=== PATIENT | female | born 1995 | race Caucasian/White ===

== ENCOUNTER 2016-09-06 23:34 | Emergency (ER) | payer OTHER ==
[2016-09-06 23:41] VITALS: BP 108/60; PULSE 90; RESP 20; O2SAT 100
--- NOTE | 2016-09-07 00:43 | ED.REPORT ---
HPI-Syncope Date of Service Sep 07, 2016 ED Provider: Niko Durbin DO 21 year old female presents to the ED via EMS accompanied by her father due to head and neck injuries status post syncopal fall just prior to arrival while in the shower. She also complains of left shoulder pain, and left knee pain secondary to the event. Four days ago she started oxcarbazepine 300mg tid. Nursing Notes Stated Complaint: SYNCOPE/CHIN LACERATION Chief Complaint: Head, Face, Neck Trauma Nursing Notes Reviewed: Yes Allergies: Coded Allergies: No Known Allergies (Unverified , 09/06/16) General Time Seen by Provider: 00:43 Chief Complaint Lost consciousness Hx Obtained From: Patient Arrived By: Ambulance Onset Occurred: Just prior to arrival Location: : Head: Neck Quality: Painful Severity: Current: Moderate Severity: Maximum: Moderate Pertinent Negative: Pt denies other symptoms Similar Sx Previous: No Past Medical History Past Medical History Depression PTSD Bipolar Anxiety Smoking History Never Smoker Social History Alcohol Use: Denies alcohol use Ambulatory Status Independent Review of Systems Cardiovascular: Denies: Chest pain GI: Denies: Abdominal pain, Nausea, Vomiting Musculoskeletal: Reports: Joint pain (Left Shoulder, Left knee), Neck pain, Denies: Back pain, Extremity pain, Lumbar pain Neurologic: Reports: Headache, Syncope Complete sys rev & neg: except as marked. Physical Exam Initial Vital Signs Vital Signs (First) Date Time Temp Pulse Resp B/P Pulse Ox O2 Delivery O2 Flow Rate FiO2 09/06/16 23:41 36.9 90 20 108/60 100 Room Air Initial VS: Reviewed Abdomen / GI: Soft, Non-tender, No guarding, No rebound, No distention Skin: Warm, Dry, No cyanosis General/Constitutional: Awake, Alert, Well developed, Well nourished Appearance / Presentation: Positive: Obese Respiratory / Chest: Breath sounds NL, Breath sounds = bilat, No respiratory distress, No rales, No rhonchi, No wheezing Cardiovascular: Heart rate NL, Regular rhythm, Heart sounds NL, No murmurs, Cap refill not delayed, Peripheral circulation NL Lower Extremity / Pelvis / MS: No deformity, Neurologic intact, Vascular intact Left Knee: Positive: ROM painful, ROM reduced, Tenderness present... (Moderate) Neurologic: Oriented X3, Speech NL, No motor deficits, No sensory deficits Head / Eyes: Normocephalic 2cm chin laceration Neck: No meningismus, Full range of motion, No tracheal deviation Neck / Muscle Tenderness: Positive: Midline tenderness mid Upper Extremity / MS: Neurologic intact, Vascular intact Left Shoulder: Positive: Tenderness present... (Moderate) Interpretation & Diagnostics Lab Results Interpretation Result Diagram: 09/07/16 0208 09/07/16 0208 Test 09/07/16 02:08 White Blood Count 17.3th/mm3 (3.8-10.1) Red Blood Count 5.23mil/mm3 (3.90-5.20) Hemoglobin 15.4g/dL (12.0-15.6) Hematocrit 44.1% (35.0-46.0) Mean Corpuscular Volume 84.3fL (81-100) Mean Corpuscular Hemoglobin 29.4pg (27.0-35.0) Mean Corpuscular Hemoglobin Concent 34.9% (32.0-37.0) Red Cell Distribution Width 12.6% (12.3-15.4) Platelet Count 269bil/L (150-400) Neutrophils (%) (Auto) 75.1% (40-74) Lymphocytes (%) (Auto) 18.3% (14-46) Monocytes (%) (Auto) 5.6% (4-12) Eosinophils (%) (Auto) 0.4% (0-5) Basophils (%) (Auto) 0.3% (0-3) D-Dimer < 0.5mg/L (<0.50) Sodium Level 137mEq/L (134-144) Potassium Level 5.0mEq/L (3.5-5.2) Chloride Level 98mEq/L (97-108) Carbon Dioxide Level 24mmol/L (18-29) Blood Urea Nitrogen 10mg/dL (6-20) Creatinine 0.78mg/dL (0.57-1.00) Estimat Glomerular Filtration Rate 131mL/min (>59) Glucose Level 107mg/dL (60-99) Calcium Level 9.5mg/dL (8.5-10.1) Total Bilirubin 0.4mg/dL (0.0-1.2) Aspartate Amino Transf (AST/SGOT) 44U/L (0-50) Alanine Aminotransferase (ALT/SGPT) 43U/L (0-32) Alkaline Phosphatase 77U/L (25-150) Total Protein 8.5g/dL (6.4-8.4) Albumin 4.5g/dL (3.4-5.0) HCG Beta Subunit 0.500mIU/mL Hold Fan Top Tube Received (Received) ECG Interpretation ECG Interpretation: Sinus rhythm, rate 74 LVH Time: 01:55 Interpreted by: ED physician CT Head Interpretation Normal head CT. Electronically signed by Basilio Britton MD Study: Head CT no contrast Interpretation / Wet Read by: Interpret - Radiologist CT C-Spine Interpretation CONCLUSION: Normal CT of the cervical spine. Interpretation / Wet Read by: Interpret - Radiologist Re-Eval/Medical Decision Med Decision/Clinical Course Healthy 21-year-old female suffered a syncopal episode. She was in the shower when she felt lightheaded and she fell to the ground. She did not lose consciousness. She struck her chin suffering a chin lack. She presents now with a pretty severe headache associated with neck pain. Did not have a headache before the syncope. She felt a little bit lightheaded while standing in the shower. Her headache emanates from where she smacked her chin. Her neck is painful because she hyperextended her neck. We CT her brain and CT of cervical spine. These were normal. I was not at all concern for subarachnoid hemorrhage. Rather is concern for intracranial hemorrhage. The fact that she lost consciousness and has a severe headache was any indication for CAT scan. She was hydrated and felt better. Troponins were negative. D-dimer is negative. Trileptal can cause orthostatic hypotension. I recommend that she drinks plain liquids and follows up with her primary care physician. She is also to stand up for a slowly will take the Trileptal. She is to return for any problems or any worsening symptoms. Discharge & Departure Impression: Primary Impression: Syncope Syncope type: unspecified Qualified Code: R55 - Syncope and collapse Additional Impressions: Laceration Knee contusion Encounter type: initial encounter Laterality: left Qualified Code: S80.02XA - Contusion of left knee, initial encounter Patient Instructions: Contusions in Adults (DC), Laceration (ED), Syncope (ED) Additional Instructions: Your EKG was reassuring. The CAT scan of her brain is normal. The CAT scan of your neck is normal. The laboratory work is reassuring. The blood clot blood test was negative. Perhaps the Trileptal predispose due to passing out. I would discuss this with her primary care physician tomorrow. The Dermabond will wear off in about a week. Keep the wound clean and dry. Call Dr. Peters tomorrow to set up a follow-up. Take 1-2 Healy every 6 hours as needed for pain. Do not drive or drink alcohol or consume acetaminophen while taking the Healy. Return if any problems or any worsening symptoms. Referrals: Yelena Peters MD (PCP) Kiel Attestation Portions of this note were transcribed by Kev Carvajal. Estrellita, Dr. Durbin, personally performed the history, physical exam and medical decision-making; I reviewed and confirmed the accuracy of the information in the transcribed note. Signed by: Kiel Rousseau. 09/07/2016, 02:58 Portions of this note were transcribed by Yaneth Narayan. Dr. Pallavi Haro personally performed the history, physical exam and medical decision-making; I reviewed and confirmed the accuracy of the information in the transcribed note. Signed by: Kiel Fontanez, 09/07/2016 and 04:38. copies to: Yelena Peters MD, Todd P DO Sep 07, 2016 00:43 KEV CARVAJAL Sep 07, 2016 00:49 YANETH NARAYAN Sep 07, 2016 04:38
[2016-09-07] MEDS ORDERED: Lidocaine-Epi-Tetracaine Solution 3 mL Syringe TOPICAL ONE (00:59)
[2016-09-07] MEDS ORDERED: 0.9% Sodium Chloride 1,000 ML IV SCH (01:55)
[2016-09-07] MEDS ORDERED: Tissue Adhesive Liq (CS Supplied) TOPICAL ONE (02:15)
[2016-09-07 02:19] LABS: BASOPHILS % (AUTO) 0.3 % (0-3); EOSINOPHILS % (AUTO) 0.4 % (0-5); MONOCYTES % (AUTO) 5.6 % (4-12); Mean Corpuscular Hemoglobin 29.4 pg (27.0-35.0); Mean Corpuscular Volume 84.3 fL (81-100); NEUTROPHILS % (AUTO) 75.1 % (40-74); Platelet Count 269 bil/L (150-400)
[2016-09-07] MEDS ORDERED: _HYDROcodone/APAP 5-325 mg Tablet PO PRN (03:25)
[2016-09-07 03:39] VITALS: BP 127/66; PULSE 81; RESP 16; O2SAT 97
[2016-09-07 04:21] VITALS: BP 113/63; PULSE 77; RESP 16; O2SAT 97
--- NOTE | 2016-09-07 08:06 | DRSVH ---
PROCEDURE: X-RAY LEFT KNEE, THREE VIEWS ([id number]) INDICATIONS: syncope, knee pain TECHNIQUE: 3 views of the knee were acquired. COMPARISON: None. FINDINGS: Bones: No fractures or dislocations. No suspicious bony lesions. Soft tissues: No joint effusion. No suspicious soft tissue calcifications. IMPRESSION: No fracture or dislocation. Dictated by: Blue Nicole M.D. on 09/07/2016 at 8:04 Approved by: Blue Nicole M.D. on 09/07/2016 at 8:04
[2016-09-07] MEDS ORDERED: Sodium Chloride LOK Flush 10 mL Syringe IVFLUSH SCH (08:30)
--- NOTE | 2016-09-07 08:46 | DRSVH ---
PROCEDURE: CT CERVICAL SPINE WITHOUT CONTRAST ([id number]) INDICATIONS: syncope, head injury TECHNIQUE: Noncontrast 3 mm thick sections acquired from the skull base to the T4 level. Sagittal and coronal r eformats were then constructed. For radiation dose reduction, the following was used: automated exp osure control, adjustment of mA and/or kV according to patient size. COMPARISON: None. FINDINGS: Image quality: Excellent. Bones: No fractures or dislocations. Visualized superior ribs are intact. Soft tissues: Prevertebral soft tissues are normal in thickness. No paravertebral hematomas. No ap ical pneumothoraces. IMPRESSION: No acute fracture or malalignment Dictated by: Harsha Hernadez M.D. on 09/07/2016 at 8:44 Approved by: Harsha Hernadez M.D. on 09/07/2016 at 8:44
--- NOTE | 2016-09-07 09:18 | DRSVH ---
PROCEDURE: CT BRAIN WITHOUT CONTRAST ([id number]) INDICATIONS: syncope, head injury TECHNIQUE: Noncontrast 4.5 mm thick angled axial sections acquired from the foramen magnum to the vertex, with c oronal reformats. COMPARISON: [facility], CT, CT CERVICAL SPINE WO CON, 09/07/2016, 2:18. FINDINGS: Image quality: Excellent. CSF spaces: Basal cisterns are patent. No extra-axial fluid collections. Ventricles are normal in size and shape. Brain: No midline shift. No intracranial masses or hemorrhage. Walker-white matter interface is norm al. Skull and face: Calvarium and visualized facial bones are intact, without suspicious lesions. Sinuses: Visualized sinuses and mastoids are clear. IMPRESSION: No acute intracranial process Dictated by: Harsha Hernadez M.D. on 09/07/2016 at 8:10 Approved by: Harsha Hernadez M.D. on 09/07/2016 at 9:16
== END 2016-09-07 04:22 | disposition home or self-care (01) ==
LOC: SED 23:34
DX: R55 Syncope and collapse (principal); S01.81XA Laceration without foreign body of other part of head, initial encounter; S80.02XA Contusion of left knee, initial encounter; W18.2XXA Fall in (into) shower or empty bathtub, initial encounter; Y93.E1 Activity, personal bathing and showering; Y92.019 Unspecified place in single-family (private) house as the place of occurrence of the external cause; Y99.8 Other external cause status; M25.512 Pain in left shoulder; F31.9 Bipolar disorder, unspecified
CPT/HCPCS: 36415; 70450; 72125; 73562; 80053; 84702; 85025; 85379; 93005; 99285; J7030

== ENCOUNTER 2017-05-14 16:22 | Emergency (ER) | payer OTHER ==
[~2017-05-14] VITALS: Ht 160 cm; Wt 136.4 kg
[2017-05-14 16:25] VITALS: BP 145/103; PULSE 87; RESP 16; O2SAT 97
--- NOTE | 2017-05-14 16:57 | ED.REPORT ---
HPI-Psychiatric Illness Date of Service May 14, 2017 ED Provider: Sudha Barroso MD Pt is a 21 year old female with a hx of Bipolar, PTSD, anxiety and depression presenting to the ED for a mental health evaluation. The nurse practitioner that the pt has seen is going to be gone for 30 days and the pt states that she is "self harming" without even knowing that she is doing it. Things such as scratching herself while washing her face, and wittling a stick down to a switch and hitting herself on the leg. This behavior has been worsening over the past few days, but the pt denies suicidal ideation. Pt reports that her counselor advised her to come to the ER as she will not be able to see her regular psychiatric practitioner for 30 days and has recently had her meds changed. Recently went back on Bupropion 2 weeks ago after being off for a month and a half. Denies fever, vomiting, SOB or cough. Nursing Notes Stated Complaint: REF BY THERAPIST/MEDS Chief Complaint: Psychiatric Complaint Nursing Notes Reviewed: Yes Allergies: Coded Allergies: No Known Allergies (Unverified , 05/14/17) General Time Seen by MD: 16:42 Chief Complaint Other (Self harming behavior) Hx Obtained From: Patient Arrived By: Walk-in Onset Occurred: Onset unknown Symptom Duration: Since onset Progression Since Onset: Intermittent Severity: Current: No pain currently Severity: Maximum: No pain Recent Healthcare: No recent doctor visit, No recent hospitalization Similar Sx Previous: Yes Risk-Psychiatric Illness Suicide Risk Stratification Suicide Risk Factors - Adult: No: Alcohol use, Substance abuse RF Statements: Risk factors reviewed Past Medical History Past Medical History Depression PTSD Bipolar Anxiety Smoking History Never Smoker Social History Alcohol Use: Denies alcohol use Drug Use: Denies drug use Ambulatory Status Independent Review of Systems Constitutional: Denies: Fever Respiratory: Denies: Non-productive cough, Shortness of breath GI: Denies: Vomiting Psychiatric: Reports: Unable to control self, Denies: Suicidal ideation Complete sys rev & neg: except as marked. Physical Exam Initial Vital Signs Vital Signs (First) Date Time Temp Pulse Resp B/P Pulse Ox O2 Delivery O2 Flow Rate FiO2 05/14/17 16:25 37.3 87 16 145/103 97 Room Air Initial VS: Reviewed Head / Eyes: Atraumatic, Normocephalic, PERRL ENT: Mucous membranes moist, Conjunctiva normal, No scleral icterus Neck: Supple, Non-tender, Full range of motion Respiratory: Breath sounds normal, Clear to auscultation, No respiratory distress Cardiovascular: Regular rate & rhythm, Heart sounds normal, Intact distal pulses Abdomen / GI: Soft, Non-tender, No guarding, No rebound, No distention Extremities: Vascular intact, Neuro intact, No swelling, No tenderness Skin: Warm, Dry, No cyanosis General/Constitutional: Awake, Alert, No acute distress Appearance / Presentation: Positive: Obese Neurologic: Oriented X3, Speech NL, No motor deficits Psychiatric: Affect NL, Mood NL, Not suicidal Interpretation & Diagnostics Lab Results Interpretation Result Diagram: 05/14/17 1745 05/14/17 1745 Test 05/14/17 17:45 05/14/17 19:48 White Blood Count 11.3th/mm3 (3.8-10.1) Red Blood Count 5.13mil/mm3 (3.90-5.20) Hemoglobin 15.2g/dL (12.0-15.6) Hematocrit 43.3% (35.0-46.0) Mean Corpuscular Volume 84.4fL (81-100) Mean Corpuscular Hemoglobin 29.6pg (27.0-35.0) Mean Corpuscular Hemoglobin Concent 35.1% (32.0-37.0) Red Cell Distribution Width 12.6% (12.3-15.4) Platelet Count 225bil/L (150-400) Neutrophils (%) (Auto) 57.3% (40-74) Lymphocytes (%) (Auto) 35.0% (14-46) Monocytes (%) (Auto) 5.9% (4-12) Eosinophils (%) (Auto) 1.0% (0-5) Basophils (%) (Auto) 0.5% (0-3) Sodium Level 140mEq/L (134-144) Potassium Level 3.8mEq/L (3.5-5.2) Chloride Level 102mEq/L (97-108) Carbon Dioxide Level 22mmol/L (18-29) Blood Urea Nitrogen 9mg/dL (6-20) Creatinine 0.84mg/dL (0.57-1.00) Estimat Glomerular Filtration Rate 120mL/min (>59) Glucose Level 97mg/dL (60-99) Calcium Level 9.7mg/dL (8.5-10.1) Total Bilirubin 0.5mg/dL (0.0-1.2) Aspartate Amino Transf (AST/SGOT) 46U/L (0-50) Alanine Aminotransferase (ALT/SGPT) 66U/L (0-32) Alkaline Phosphatase 78U/L (25-150) Total Protein 8.3g/dL (6.4-8.4) Albumin 4.4g/dL (3.4-5.0) Thyroid Stimulating Hormone (TSH) 2.260uIU/mL (0.450-4.500) Hold Fan Top Tube Received (Received) Hold Urine Received (Received) Re-Eval/Medical Decision Med Decision/Clinical Course 21-year-old female presents to the emergency department with increased unintentional mild self-injurious behavior. Patient is of sound mind and not gravely disabled. She is accompanied by her father who is interested and keeping up with patient's care. Patient contracted for safety, has had no history of harming herself or suicidal intent and currently has no suicidal or homicidal intentions. She will return to the emergency department if she has any new or worsening symptoms. Re-Evaluation/Progress : Time of Eval: 21:36 Re-Evaluation/Progress Note: KAUSHIK Barakat, spoke with the pt and spoke with me, pt would have to wait until morning to have a mental health evaluation. She would prefer not to stay. She contracts for safety. She will return if she has any problems. Counseled Regarding: Diagnosis, Lab results, Need for follow-up, When/why to return to ED Discharge & Departure Impression: Primary Impression: Anxiety Additional Impression: Self-inflicted injury )( Condition at Discharge: No danger to self, No danger to others, No suicidal ideation Disposition: Home Discharge Condition All VS Reviewed: Yes Condition: Improved Patient Instructions: Anxiety (ED) Additional Instructions: Return to the ER if you have any worsening thoughts of harming yourself. Follow up tomorrow with the resources provided to you by the psych social worker, return to the ER in the morning for a mental health evaluation. Referrals: Yelena Peters MD (PCP) Scribe Attestation Portions of this note were transcribed by Alvina Lancaster. IDr. Barroso, personally performed the history, physical exam and medical decision-making; I reviewed and confirmed the accuracy of the information in the transcribed note. Signed by: Kiel Clements, 05/14/17. copies to: Yelena Peters MD, Sarah C MD May 14, 2017 16:57 ALVINA LANCASTER May 14, 2017 17:02
[2017-05-14 17:53] LABS: BASOPHILS % (AUTO) 0.5 % (0-3); MONOCYTES % (AUTO) 5.9 % (4-12); Mean Corpuscular Hemoglobin 29.6 pg (27.0-35.0); Mean Corpuscular Volume 84.4 fL (81-100); NEUTROPHILS % (AUTO) 57.3 % (40-74); Platelet Count 225 bil/L (150-400)
[2017-05-14 20:16] VITALS: BP 137/72; PULSE 92; RESP 20; O2SAT 97
[2017-05-14 22:20] VITALS: BP 140/92; PULSE 101; RESP 20; O2SAT 97
== END 2017-05-14 22:00 | disposition home or self-care (01) ==
LOC: SED 16:22
DX: F41.9 Anxiety disorder, unspecified (principal); X83.8XXA Intentional self-harm by other specified means, initial encounter; Y93.89 Activity, other specified; Y92.9 Unspecified place or not applicable; Y99.8 Other external cause status; F43.10 Post-traumatic stress disorder, unspecified